=== PATIENT | male | born 1955 ===

== ENCOUNTER 2017-04-12 09:27 | Day surgery (SDC) | payer BC, OTHER ==
[2017-04-12] MEDS ORDERED: ceFAZolin 2 GM/DEXTROSE 100 ML IV ONE (10:35)
[2017-04-12] MEDS ORDERED: LR 1,000 ML IV ONE (10:35)
[2017-04-12] MEDS ORDERED: NS 1,000 ML IV ONE (10:52)
--- NOTE | 2017-04-12 11:01 | PDHPUP ---
History & Physical Update H&P update statement: This history and physical update is based on an assessment of the patient which was completed after admission or registration (within 24 hours), but prior to the surgery/procedure. H&P update: H&P reviewed & patient examined, no change in patient's condition since H&P completed
--- NOTE | 2017-04-12 11:01 | PDANEPAE ---
ANE History of Present Illness avf left, pd cath removal. ANE Past Medical History - Cardiovascular History Hx Hypertension: Yes Hx Arrhythmias: No Hx Chest Pain: No Hx Coronary Artery / Peripheral Vascular Disease: No Hx CHF / Valvular Disease: No Hx Palpitations: No - Pulmonary History Hx COPD: No Hx Asthma/Reactive Airway Disease: No Hx Recent Upper Respiratory Infection: No Hx Oxygen in Use at Home: No - Neurologic History Hx Cerebrovascular Accident: No Hx Seizures: No Hx Dementia: No - Endocrine History Hx Diabetes: Yes - Renal History Hx Renal Disorders: Yes - Liver History Hx Hepatic Disorders: No - Neurological & Psychiatric Hx Hx Neurological and Psychiatric Disorders: No - Cancer History Hx Cancer: No - Congenital Disorder History Hx Congenital Disorders: No - GI History Hx Gastrointestinal Disorders: Yes - Chronic Pain History Chronic Pain: Yes (R knee) ANE Review of Systems - Exercise capacity Exercise capacity: >=4 METS METS (RN): 4 METS - Systems Constitutional: Reports: no symptoms EENMT: Reports: no symptoms Cardiac: Reports: no symptoms Respiratory: Reports: no symptoms Neurological: Reports: no symptoms ANE Patient History - Allergies Allergies/Adverse Reactions: No Known Allergies Allergy (Verified 04/06/17 15:19) - Home Medications Home Medications: Amlodipine Besylate 09/01/16 [Last Taken 04/11/17 15:30] Aspirin 81mg (*) 09/01/16 [Last Taken 04/05/17] Lasix 09/01/16 [Last Taken 04/05/17] Levemir 09/01/16 [Last Taken 04/11/17 07:00] Lipitor 09/01/16 [Last Taken 04/11/17 15:30] Lovaza 1 gm (*) 09/01/16 [Last Taken 04/05/17] Toprol Xl 200 mg 09/01/16 [Last Taken 04/11/17 15:30] novoLOG 04/06/17 [Last Taken 04/11/17 15:30] - NPO status NPO Since - Liquids (Date): 04/11/17 NPO Since - Liquids (Time): 21:00 NPO Since - Solids (Date): 04/11/17 NPO Since - Solids (Time): 15:30 - Anes Hx Anes Hx: no prior problems - Smoking Hx Smoking Status: Never smoked - Alcohol Use Alcohol Use: None - Family Anes Hx Family Anes Hx: none ANE Labs/Vital Signs - Labs - BMP Glucose: 148 - Vital Signs Blood Pressure: 169/86 Heart Rate: 70 Respiratory Rate: 17 O2 Sat (%): 91 Height: 182.88 cm Weight: 124.284 kg ANE Physical Exam - Airway Neck exam: FROM Mallampati Score: Class 2 Mouth exam: normal dental/mouth exam - Pulmonary Pulmonary: no respiratory distress - Cardiovascular Cardiovascular: regular rate and rhythym - ASA Status ASA Status: III ANE Anesthesia Plan Anesthesia Plan: GA w LMA
[2017-04-12] MEDS ORDERED: MIDAZOLAM 2 MG/2 ML VIAL IVP ONE (11:04)
[2017-04-12] MEDS ORDERED: BUPIVACAINE 0.5% 30 ML SDV ONE (11:17)
[2017-04-12] MEDS ORDERED: PAPAVERINE HCL 60 MG/2 ML SDV ONE (11:17)
[2017-04-12] MEDS ORDERED: THROMBIN (BOVINE) 20,000 UNIT SPRAY TP ONE (11:18)
[2017-04-12] MEDS ORDERED: THROMBIN (BOVINE) 5,000 UNIT VIAL TP ONE (11:18)
[2017-04-12] MEDS ORDERED: PROTAMINE SULFATE 50 MG/5 ML VIAL IVP ONE ×2 (11:19→12:41)
[2017-04-12] MEDS ORDERED: fentaNYL 100 MCG/2 ML INJ ONE ×3 (11:23→12:20)
[2017-04-12] MEDS ORDERED: PROPOFOL 200 MG/20 ML VIAL ONE (11:23)
[2017-04-12] MEDS ORDERED: LIDOCAINE 2% 5 ML SDV ONE (11:23)
[2017-04-12] MEDS ORDERED: HEPARIN 10,000 UNIT/10 ML MDV ONE (12:16)
[2017-04-12] MEDS ORDERED: epHEDrine SULFATE 10 MG/ML SYR ONE ×2 (12:30→12:43)
[2017-04-12] MEDS ORDERED: fentaNYL 100 MCG/2 ML INJ IVP PRN (12:48)
[2017-04-12] MEDS ORDERED: NALOXONE HCL 0.4 MG/ML INJ IVP PRN (12:48)
[2017-04-12] MEDS ORDERED: ALBUTEROL 3 ML DEYVIAL IH PRN (12:48)
[2017-04-12] MEDS ORDERED: HYDROmorphONE/DILAUDID 1 MG/ML SYR IVP PRN (12:48)
[2017-04-12] MEDS ORDERED: ONDANSETRON 4 MG/2 ML VIAL IVP PRN (12:48)
[2017-04-12] MEDS ORDERED: ONDANSETRON 4 MG/2 ML VIAL ONE (12:53)
--- NOTE | 2017-04-12 13:09 | POSTOPPROG ---
Post Op Note Date of Operation: 04/12/17 Surgeon: Anthony Kaye Security Director: Gaye Williamson Anesthesiologist: Marcelo Vasquez Anesthesia: GET(General Endotracheal) Pre-op Diagnosis: CRF, not amenable to PD Post-op Diagnosis: same Procedure: 1. L brachiocephalic AVF; 2. PD catheter removal. Findings: good thrill, large vein Inf/Abcess present in the surg proc area at time of surgery?: No EBL: Minimal Complications: none
[2017-04-12] MEDS ORDERED: HYDROCODONE/APAP 5/325 TAB PO PRN (13:13)
[2017-04-12 13:48] VITALS: TEMP 97.7
[2017-04-12 14:02] VITALS: PULSE 68; RESP 16
--- NOTE | 2017-04-12 15:31 | POSTANESTH ---
Post Anesthetic Evaluation Cardiovascular Status: Normal, Stable Respiratory Status: Normal, Stable Level of Consciousness/Mental Status: Can Participate in Eval Pain Control: Adequate, Prn Tx Ordered Nausea/Vomiting Control: Adequate, Prn Tx Ordered Complications Possibly Related to Anesthesia: None Noted
[2017-04-12 15:37] VITALS: BP 141/62
[2017-04-12 15:52] VITALS: O2SAT 98
== END 2017-04-12 15:40 | disposition home or self-care (01) ==
LOC: FSGY 09:27
PROVIDERS: ATTEND Surgery
PROC: 03180ZD Bypass Left Brachial Artery to Upper Arm Vein, Open Approach (ICD-10-PCS; principal; 2017-04-12 11:30)
PROC: 0WPG03Z Removal of Infusion Device from Peritoneal Cavity, Open Approach (ICD-10-PCS; principal; 2017-04-12 11:30)
DX: N18.6 End stage renal disease (principal); T82.49XA Other complication of vascular dialysis catheter, initial encounter; E11.22 Type 2 diabetes mellitus with diabetic chronic kidney disease; I12.9 Hypertensive chronic kidney disease with stage 1 through stage 4 chronic kidney disease, or unspecified chronic kidney disease
CPT/HCPCS: J0690; J1644; J2250; J2405; J2440; J2704; J2720; J3010